=== PATIENT | female | born 2005 | race Two or more races ===

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

== ENCOUNTER 2024-12-13 22:59 | Emergency (ER) | payer MEDICAID, OTHER ==
[~2024-12-13] VITALS: Ht 152.4 cm; Wt 53.6 kg
[~2024-12-13 22:59] MED LIST: CEPH250C PO
[2024-12-13] MEDS ORDERED: ACET500T58 PO (23:37)
--- NOTE | 2024-12-13 23:38 | ED.PDOC ---
Eye-HPI HPI Comments 19 year old female presents to ER with complaints of flu-like symptoms x3 days. Patient reports she has been experiencing sore throat and intermittent bilateral earache pain x three days with associated dry cough x1 day. Reports positive exposure to sick contacts at home. She reports 3/10 sore throat pain, denying any other current pain. Patient presents to ER ambulatory on arrival, with steady gait, in no distress and states that she has finished amoxicillin antibiotics for strep throat one week ago. Denies fever, shortness of breath, difficulty swallowing, chest pain, hemoptysis, headache, dizziness or any further symptoms/complaints Chief Complaint: Sore Throat Time Seen by MD: 23:05 Primary Care Provider: PAULO Greene Notes: Nurses Notes, Medications, Allergies Allergies: Coded Allergies: NO KNOWN ALLERGIES (Unverified , 03/28/22) Home Meds Active Scripts Acetaminophen (Acetaminophen) 500 Mg Tab, 500 MG PO Q4HPRN, #30 TAB 0 Refills Prov:OSMANI WEEKS 12/13/24 Cephalexin (KEFLEX CAPSULE) 250 Mg Cp, 1 CAP PO QID for 7 Days, #28 CAP Prov:NIKOLAI GORE MD 11/14/23 Information Source: Patient Mode of Arrival: Ambulatory Past Medical History PAST MEDICAL HISTORY: Denies Surgical History: Denies all surgeries RESIDENTIAL NURSE History: Denies all RESIDENTIAL NURSE Hx Family History Family History: Unknown Social History Smoker: Non-Smoker Alcohol: Denies ETOH Use Drugs: Denies Drug Use Lives In: Home Constitutional: denies: chills, diaphoresis, fatigue, fever, malaise, sweats, weakness, others EENTM: reports: others (As stated in HPI) Respiratory: reports: others (As stated in HPI) Cardiovascular: denies: chest pain, dizzy spells, diaphoresis, Dyspnea on exertion, edema, irregular heart beat, left arm pain, lightheadedness, palpitations, PND, syncope, others Gastrointestinal: denies: abdomen distended, abdominal pain, blood streaked bowels, constipated, diarrhea, dysphagia, difficulty swallowing, hematemesis, melena, nausea, poor appetite, poor fluid intake, rectal bleeding, rectal pain, vomiting, others Genitourinary: denies: abnormal vagina bleeding, burning, dyspareunia, dysuria, flank pain, frequency, hematuria, incontinence, pain, , vagina discharge, urgency, others Neurological: denies: dizziness, fainting, headache, left sided numbness, left sided weakness, numbness, paresthesia, pre-existing deficit, right sided numbness, right sided weakness, seizure, speech problems, tingling, tremors, weakness, others Musculoskeletal: denies: back pain, gout, joint pain, joint swelling, muscle pain, muscle stiffness, neck pain, others Integumetry: denies: bruises, change in color, change in hair/nails, dryness, laceration, lesions, lumps, rash, wounds, others Allergic/Immunocompromised: denies: Difficulty Healing, Frequent Infections, Hives, Itching, others Hematologic/Lymphatic: denies: anemia, blood clots, easy bleeding, easy bruising, swollen glands, others Endocrine: denies: excessive hunger, excessive sweating, excessive thirst, excessive urination, flushing, intolerance to cold, intolerance to heat, unexplained weight gain, unexplained weight loss, others Psychiatric: denies: anxiety, bipolar disorder, depression, hopeless, panic disorder, schizophrenia, sleepless, suicidal, others Physical Exam General Appearance: No Apparent Distress HEENT: Normal ENT Inspection, PERRL/EOMI, Pharynx Normal, TMs Normal Neck: Full Range of Motion, Non-Tender, Normal Respiratory: Chest Non-Tender, Lungs Clear, No Accessory Muscle Use, No Respiratory Distress, Normal Breath Sounds Cardiovascular: No Murmur, No Gallop, Regular Rate/Rhythm Breast Exam: Deferred Gastrointestinal: NOT DONE Genitalia: Deferred Pelvic: Deferred Rectal: Deferred Extremities: Normal capillary refill, Normal range of motion Neurologic: Alert, director software II-XII nml as Tested, No Motor Deficits, Normal Affect, Normal Mood, No Sensory Deficits Cerebellar Function: Normal Reflexes: Normal Skin: Dry, Normal Color, Warm Peripheral Pulses: 2+ Radial (R), 2+ Radial (L), 2+ Brachial (R), 2+ Brachial (L) Lymphatic: No Adenopathy Was a procedure done? Was a procedure done?: No Sedation Sedation?: No EENT DIFF Eye: N/A Ear: Cerumen Impaction, Otitis Externa, Otitis Media Sore Throat: Epiglottitis, Mononeucleosis, Peritonsillar Abscess, Streptococcal, Other (COVID-19, INFLUENZA) X-Ray, Labs, Meds, VS Vital Signs Date Time Temp Pulse Resp B/P (MAP) Pulse Ox O2 Delivery O2 Flow Rate FiO2 12/13/24 23:45 98 17 98 Room Air 12/13/24 23:45 98.7 98 17 123/81 (95) 98 98.7 12/13/24 23:17 98.7 98 17 123/81 (95) 98 Lab Test 12/13/24 23:36 Range/Units Influenza Type A Antigen Negative Negative Influenza Type B Antigen Negative Negative SARS-CoV-2 Antigen (Rapid) Negative NEGATIVE Swab results reviewed- negative Advised to drink plenty of fluids Patient tolerating p.o. intake well and in no distress during ER visit/prior to discharge Advised to follow up with PCP in 1-2 days Patient verbalized understanding and agreeable with current plan of care Advised to return to ER immediately if symptoms worsen Time of 1ST Reevaluation: 23:00 Reevaluation 1ST: N/A Patient Education/Counseling: Diagnosis, Treatment, Prognosis, Need For Follow Up Family Education/Counseling: No Family Present Departure 1 Departure Time of Disposition: 23:32 Impression: Primary Impression: Viral URI Disposition: 01 HOME / SELF CARE / HOMELESS Condition: Stable e-Prescriptions Acetaminophen (Acetaminophen) 500 Mg Tab 500 MG PO Q4HPRN, #30 TAB 0 Refills Prov: OSMANI WEEKS 12/13/24 Discharged With: Self Critical Care Note Critical Care Time?: No Stability Stability form required: No Heart Score Heart Score: Heart Score Response (Comments) Value History N/A 0 EKG N/A 0 Age N/A 0 Risk Factors N/A 0 Troponin N/A 0 Total 0 OSMANI WEEKS Dec 13, 2024 23:38
[2024-12-13 23:45] VITALS: BP 123/81; PULSE 98; RESP 17; TEMP 98.7; O2SAT 98
[2024-12-14 00:27] LABS: COVID19 ANTIGEN SOFIA FIA NEGATIVE (NEGATIVE)
[2024-12-14 00:29] LABS: Rapid Influenza A Negative (Negative); Rapid Influenza B Negative (Negative)
[2024-12-14] MEDS ORDERED: PRED20TA2 PO (00:47)
== END 2024-12-14 00:57 | disposition home or self-care (01) ==
LOC: ER 22:59
DX: J06.9 Acute upper respiratory infection, unspecified (principal); B97.89 Other viral agents as the cause of diseases classified elsewhere; H92.03 Otalgia, bilateral; Z20.822 Contact with and (suspected) exposure to COVID-19
CPT/HCPCS: 36415; 87426; 87804; 99283; J7030; J7040

== ENCOUNTER 2025-05-20 21:02 | Emergency (ER) | payer OTHER ==
[~2025-05-20] VITALS: Ht 152.4 cm; Wt 53.4 kg
[~2025-05-20 21:02] MED LIST changes: +ACET500T58 PO; +PRED20TA2 PO
[2025-05-20] MEDS ORDERED: CEFD300C2 PO (21:23)
--- NOTE | 2025-05-20 21:23 | ED.PDOC ---
Eye-HPI HPI Comments 20-YEAR-OLD FEMALE PRESENTS TO THE ED CHIEF COMPLAINT RIGHT EAR PAIN. PATIENT STATES TIMES 24 HOURS SHE NOTES PAIN BEHIND RIGHT EAR SHOOTING DOWN THE RIGHT SIDE OF HER NECK INTO THE BACK OF HER HEAD. DENIES ANY INJURY. SHE NOTES CHILLS AND FEVER. DENIES ANY HEARING PROBLEMS. DENIES NUMBNESS OR WEAKNESS. Chief Complaint: Earache Time Seen by MD: 21:04 Primary Care Provider: PAULO Reviewed Notes: Nurses Notes, Medications, Allergies Allergies: Coded Allergies: NO KNOWN ALLERGIES (Unverified , 03/28/22) Home Meds Active Scripts Prednisone (Prednisone) 20 Mg Tab, 20 MG PO BID for 5 Days, #10 TAB 0 Refills Prov:OSMANI WEEKS 12/14/24 Acetaminophen (Acetaminophen) 500 Mg Tab, 500 MG PO Q4HPRN, #30 TAB 0 Refills Prov:OSMANI WEEKS 12/13/24 Cephalexin (KEFLEX CAPSULE) 250 Mg Cp, 1 CAP PO QID for 7 Days, #28 CAP Prov:NIKOLAI GORE MD 11/14/23 Past Medical History PAST MEDICAL HISTORY: Denies Surgical History: Denies all surgeries OPENSTACK DEVELOPER History: Denies all OPENSTACK DEVELOPER Hx Family History Family History: Unknown Social History Smoker: Non-Smoker Alcohol: Denies ETOH Use Drugs: Denies Drug Use Lives In: Home Constitutional: reports: fever; denies: chills, diaphoresis, fatigue, malaise, sweats, weakness, others EENTM: reports: ear pain; denies: blurred vision, double vision, ear bleeding, ear discharge, ear drainage, ear ringing, eye pain, eye redness, hearing loss, mouth pain, mouth swelling, nasal discharge, nose bleeding, nose congestion, nose pain, photophobia, tearing, throat pain, throat swelling, voice changes, others Respiratory: denies: cough, hemoptysis, orthopnea, SOB at rest, shortness of breath, SOB with excertion, stridor, wheezing, others Cardiovascular: denies: chest pain, dizzy spells, diaphoresis, Dyspnea on exertion, edema, irregular heart beat, left arm pain, lightheadedness, palpitations, PND, syncope, others Gastrointestinal: denies: abdomen distended, abdominal pain, blood streaked bowels, constipated, diarrhea, dysphagia, difficulty swallowing, hematemesis, melena, nausea, poor appetite, poor fluid intake, rectal bleeding, rectal pain, vomiting, others Genitourinary: denies: abnormal vagina bleeding, burning, dyspareunia, dysuria, flank pain, frequency, hematuria, incontinence, pain, , vagina discharge, urgency, others Neurological: denies: dizziness, fainting, headache, left sided numbness, left sided weakness, numbness, paresthesia, pre-existing deficit, right sided numbness, right sided weakness, seizure, speech problems, tingling, tremors, weakness, others Musculoskeletal: denies: back pain, gout, joint pain, joint swelling, muscle pain, muscle stiffness, neck pain, others Integumetry: denies: bruises, change in color, change in hair/nails, dryness, laceration, lesions, lumps, rash, wounds, others Allergic/Immunocompromised: denies: Difficulty Healing, Frequent Infections, Hives, Itching, others Hematologic/Lymphatic: denies: anemia, blood clots, easy bleeding, easy bruising, swollen glands, others Endocrine: denies: excessive hunger, excessive sweating, excessive thirst, excessive urination, flushing, intolerance to cold, intolerance to heat, unexplained weight gain, unexplained weight loss, others Psychiatric: denies: anxiety, bipolar disorder, depression, hopeless, panic disorder, schizophrenia, sleepless, suicidal, others Physical Exam General Appearance: No Apparent Distress, Normal HEENT: Pharynx Normal, TMs Normal, Other (MODERATE TENDERNESS NOTED ERYTHEMA RIGHT MASTOID) Neck: Full Range of Motion, Non-Tender Respiratory: Lungs Clear, No Respiratory Distress, Normal Breath Sounds Cardiovascular: No Edema, No JVD, No Murmur, No Gallop, Normal Peripheral Pulses, Regular Rate/Rhythm Breast Exam: Deferred Gastrointestinal: No Organomegaly, Non Tender, No Pulsatile Mass, Normal Bowel Sounds, Soft Genitalia: Deferred Pelvic: Deferred Rectal: Deferred Extremities: Normal capillary refill, Normal inspection, Normal range of motion, Non-tender, No pedal edema Musculoskeletal : Apperance: Normal Neurologic: Alert, No Motor Deficits, Normal Affect, Normal Mood, No Sensory Deficits Cerebellar Function: Normal Reflexes: Normal Skin: Dry, Normal Color, Warm Lymphatic: No Adenopathy Was a procedure done? Was a procedure done?: No EENT DIFF Eye: N/A, Orbital Cellulits, Periorbital Cellulits, Retinal Artery Occlusion Ear: Foreign Body, Otitis Externa, Barotrauma, Otitis Media, Perforation, Dental, Pharyngitis X-Ray, Labs, Meds, VS Comment PATIENT GIVEN ROCEPHIN 1 G IM AND DECADRON 10 MG IM. REPORTS IMPROVEMENT IN SYMPTOMS REQUESTING DISCHARGE AT THIS TIME. WE WILL SCRIPT TRIAL OF CEFDINIR ADVISED TAKE MEDICATIONS PRESCRIBED SIDE EFFECTS DISCUSSED. HE IS TO REST INCREASE P.O. FLUIDS WITH ELECTROLYTES. THE COUNTER TYLENOL OR MOTRIN NEEDED FOR THE PAIN PER LABELED DOSING INSTRUCTIONS. FOLLOW UP WITH YOUR PCP IN 2-3 DAYS NECESSARY. ER RETURN PRECAUTIONS GIVEN PATIENT INDICATES UNDERSTANDING AND AGREES WITH DISCHARGE PLAN OF CARE. Time of 1ST Reevaluation: 21:20 Reevaluation 1ST: Unchanged Time of 2ND Reevaluation: 21:22 Reevaluation 2ND: Improved Patient Education/Counseling: Diagnosis, Treatment, Prognosis, Need For Follow Up Family Education/Counseling: No Family Present Departure 1 Departure Time of Disposition: 21:19 Impression: Primary Impression: Mastoiditis of right side Disposition: HOME / SELF CARE / HOMELESS Condition: Stable e-Prescriptions Cefdinir (Cefdinir) 300 Mg Cap 1 CAP PO BID for 7 Days, #14 CAP Prov: RICH CALVO 05/20/25 Discharged With: Self Critical Care Note Critical Care Time?: No Stability Stability form required: RICH Rodriguez May 20, 2025 21:23
[2025-05-20 22:30] VITALS: BP 127/64; PULSE 89; RESP 16; TEMP 98.3; O2SAT 98
[2025-05-20] MEDS: cefTRIAXone SOD 1,000 MG VL IM ONE (22:34)
== END 2025-05-20 22:50 | disposition home or self-care (01) ==
LOC: ER 21:02
DX: H70.91 Unspecified mastoiditis, right ear (principal)
CPT/HCPCS: 96372; 99284; J0696; J1100